=== PATIENT | male | born 1995 | race Caucasian/White ===

== ENCOUNTER 2018-07-05 12:59 | Emergency (ER) | payer SELFPAY ==
[2018-07-05 13:00] VITALS: BP 150/86; PULSE 103; RESP 21; TEMP 36.7; O2SAT 100; BMI 22.8
--- NOTE | 2018-07-05 13:07 | NURSING ---
NO OLD EKGS
--- NOTE | 2018-07-05 13:37 | EKG12_ITS ---
Test Reason : CP SOB Blood Pressure : / mmHG Vent. Rate : 096 BPM Atrial Rate : 096 BPM P-R Int : 124 ms QRS Dur : 092 ms QT Int : 346 ms P-R-T Axes : -82 082 -20 degrees QTc Int : 437 ms Unusual P axis and short [place], probable junctional tachycardia T wave abnormality, consider inferior ischemia Abnormal ECG Confirmed by ORI NIÑO, KWASI ([id number]), web editor EVY DAY ([id number]) on 07/10/2018 11:34:27 AM Referred By: LAURA Confirmed By:KWASI REHMAN MD
--- NOTE | 2018-07-05 13:37 | RAD_ITS ---
STUDY: X-RAY CHEST REASON FOR EXAM: Male, 22 years old. Chest pain TECHNIQUE: Frontal and lateral views of the chest were obtained. COMPARISON: March 03, 2016 FINDINGS: The lungs are adequately aerated. There are no focal airspace opacities. There is no demonstrated pleural abnormality. Incidentally noted is a benign azygos fissure in the right apex. The cardiac silhouette is normal in size. The mediastinum and hilar regions are unremarkable. Normal visualized pulmonary arteries. Normal visualized aortic arch and descending thoracic aorta. The thoracic spine is unremarkable. The visualized ribs, clavicles, and shoulders are unremarkable. There is no demonstrated abnormality of the visualized upper abdomen. RAD/Chest PA and Lateral IMPRESSION: No acute cardiopulmonary abnormalities. Electronically Signed: Lilibeth Shay MD at 14:24 EST Tel Direct: [phone], Service support ,
[2018-07-05 15:00] VITALS: BP 129/72; PULSE 69; RESP 17; O2SAT 97
[2018-07-05 15:09] LABS: Amphetamine Urine VISTA NEGATIVE (<1000 ng/mL); Barbiturate Urine VISTA NEGATIVE (< 200 ng/mL); Benzodiazepine Urine VISTA NEGATIVE (< 200 ng/mL); Cocaine Urine VISTA NEGATIVE (< 300 ng/mL); Ecstacy Urine VISTA NEGATIVE (< 500 ng/mL); Methadone Urine VISTA NEGATIVE (< 300 ng/mL); PCP Urine VISTA NEGATIVE (< 25 ng/mL); THC Urine VISTA POSITIVE (< 50 ng/mL); Vista UDS pH Range 7
--- NOTE | 2018-07-05 15:22 | ED.VISSUMM ---
- ER Visit Summary Date of Service: 07/05/18 Chief Complaint: Shortness of breath History of Present Illness: The patient is a 22 M who states that today at work he began to feel tightness in his chest and then developed tingling in his arms and his face and some shortness of breath. States is happened before but only lasted a couple minutes the same to keep going and was getting worse. Patient states he is never seen a counselor before. He states he is under a great deal of stress in his personal life. Physical Examination: Afebrile vital signs are stable Gen: Well-nourished well-developed Head: Normocephalic atraumatic Eyes: Perrl EOMI ENT: TMs clear no rhinorrhea moist mucous membranes Neck: Supple no lymphadenopathy no JVD nontender CVS: Regular rate rhythm no murmurs normal S1-S2 Respiratory: No distress clear to auscultation bilaterally chest nontender Abdomen: Soft nontender nondistended normal bowel sounds no masses Back: Nontender Extremity: Nontender no edema Skin: Normal color no rash Neuro: alert orientated ?3 CN II-XII intact normal strength sensation reflexes gait cerebellar Psych: Anxious Test Results: EKG sinus rhythm at a rate of 96. Chest x-ray negative. Urine tox is positive for cannabinoids Emergency Department Course and Treatment: When I first walked into the room to meet the patient he was sleeping. Patient's pulse ox was about 76% and he was snoring having periods of apnea. Patient most likely has sleep apnea and I would recommend that he follow-up with primary care to have a sleep study. He also will need to follow-up with counseling center primary care regarding his anxiety. Impression: 1. Panic attack 2. Sleep apnea This note was generated with [employer] dictation software. It may contain incorrect words, spelling, and punctuation that were not noted in review of the chart prior to signing ED Disposition - Plan for ED Patient: Disposition: Home or Assisted Living Chief Complaint: Chest Pain Instructions: ED Panic Attack, What Are Snoring and Sleep Apnea? Referrals: Juan Weber MD [STAFF PHYSICIAN] - As soon as possible Counseling,Center [GROUP OF PHYSICIANS] - As soon as possible
== END 2018-07-05 16:18 | disposition home or self-care (01) ==
PROVIDERS: Emergency Provider Emergency Medicine
DX: G47.30 Sleep apnea, unspecified (principal); F41.0 Panic disorder [episodic paroxysmal anxiety]; Z87.891 Personal history of nicotine dependence
CPT/HCPCS: 71046; 80307; 93005; 99285; A4216

== ENCOUNTER 2018-12-02 18:56 | Emergency (ER) | payer OTHER, SELFPAY ==
[2018-12-02 18:56] VITALS: BP 138/73; PULSE 95; RESP 16; TEMP 36.3; O2SAT 97; BMI 23.0
--- NOTE | 2018-12-02 19:55 | RAD_ITS ---
STUDY: X-RAY - LUMBAR SPINE REASON FOR EXAM: Male, 23 years old. Pain TECHNIQUE: 3 view(s) of the lumbar spine were obtained. COMPARISON: None FINDINGS: There is no evidence of fracture or dislocation in the lumbar spine. The vertebral body heights and disc spaces are well-maintained. There are no significant degenerative changes. RAD/Lumbar Spine 2 or 3 Views IMPRESSION: No fracture or dislocation in the lumbar spine. Electronically Signed: Gianni Marroquin, at 20:12 EDT Tel , Service support ,
[2018-12-02] MEDS: morphine 10 MG/ML Syringe IM (20:07)
[2018-12-02] MEDS: Ondansetron 4 MG/2 ML Vial IM (20:07)
--- NOTE | 2018-12-02 20:09 | ED.VISSUMM ---
- ER Visit Summary Date of Service: 12/02/18 Chief Complaint: Back pain History of Present Illness: The patient is a 23 M presenting with back pain. Patient states he has been having ongoing back pain for the past several months. He states this started when he slipped on ice a few months ago and fell landing on his back. He states since Sunday the pain has been worse. He has tried ibuprofen at home with no relief. He denies bowel or bladder incontinence. Denies numbness or weakness. Denies fever. Denies other complaints. Physical Examination: Vitals are stable. Patient is afebrile. Alert no acute distress. HEENT exam is unremarkable. Neck is supple. Lungs are clear and equal bilaterally. Heart is regular rate and rhythm. Abdomen is soft nontender nondistended. Back: Right paraspinal lumbar muscle tenderness, no midline tenderness. Straight leg raise positive at 30 degrees on the right Extremities are unremarkable. Skin is warm and dry. No focal neurologic deficit. Normal strength and sensation Remainder of exam is unremarkable. Emergency department course and Treatment: Patient was given morphine, Zofran IM. Lumbar spine x-ray shows no acute process. On reevaluation, patient is feeling improved. He is given prescription for Naprosyn and Flexeril. Advised to follow-up with primary care physician. Advised return to ED if worsening complaints. Disposition: Discharge home Impression: Lumbar strain This note was generated with [employer] dictation software. It may contain incorrect words, spelling, and punctuation that were not noted in review of the chart prior to signing ED Disposition - Plan for ED Patient: Instructions: ED Neck Back Pain General Prescriptions: Naproxen [Naprosyn] 500 mg PO BID PRN #20 tablet Cyclobenzaprine [Flexeril] 10 mg PO TID PRN #20 tablet PRN Reason: Muscle Spasm Referrals: Houston Eugene MD [STAFF PHYSICIAN] - Care Physician,No Primary [Primary Care Provider] -
--- NOTE | 2018-12-02 20:45 | ED.DEP ---
ED Disposition - Plan for ED Patient: Instructions: ED Neck Back Pain General Prescriptions: Naproxen [Naprosyn] 500 mg PO BID PRN #20 tablet Cyclobenzaprine [Flexeril] 10 mg PO TID PRN #20 tablet PRN Reason: Muscle Spasm Referrals: Care Physician,No Primary [Primary Care Provider] - Houston Eugene MD [STAFF PHYSICIAN] -
[2018-12-02 21:07] VITALS: RESP 18
== END 2018-12-02 21:25 | disposition home or self-care (01) ==
LOC: ED 19:53
PROVIDERS: Emergency Provider Emergency Medicine
DX: S39.012A Strain of muscle, fascia and tendon of lower back, initial encounter (principal); W00.0XXA Fall on same level due to ice and snow, initial encounter; Y93.89 Activity, other specified; Y92.89 Other specified places as the place of occurrence of the external cause; Y99.8 Other external cause status
CPT/HCPCS: 72100; 96372; 99282; J2405

== ENCOUNTER 2019-06-23 01:31 | Emergency (ER) | payer SELFPAY ==
[2019-06-23 01:32] VITALS: BP 136/113; PULSE 84; RESP 20; TEMP 36.2; O2SAT 98; BMI 24.0
--- NOTE | 2019-06-23 01:43 | ED.DCSUM_ITS ---
- ER Visit Summary Date of Service: 06/23/19 Chief Complaint: Dental pain History of Present Illness: The patient is a 23 M no seen in past medical history. States he had root canals before and is front upper teeth. States he has had pain last several days. Denies any recent trauma. No fever. No troubl e breathing or swallowing. Physical Examination: Young male complaining of pain vital signs are stable afebrile. He is in no acute distress. H EENT exam is unremarkable. Except his right upper tooth is decayed. There is minimal gingival swelling. His left upper front tooth is tender to palpation. There is no obvious abscess. There is no trismus. There is no swelling of his face. Posterior pharynx unremarkable. Neck nontender no lymphadenopathy. Lungs clear to auscultation bilaterally. Heart regular rhythm no murmur. Abdomen is soft and nontender. Patient is moving all 4 extremities. No edema. No track chaudhari. Neurologically is awake alert with no focal motor deficits. Test Results: None Emergency Department Course and Treatment: Patient be treated with Naprosyn for his dental pain. Given a prescription. Treatment Plan: Follow-up with [facility] clinic. Naprosyn for pain. Disposition: Discharge Impression: Dental pain This note was generated with [employer] dictation software. It may contain incorrect words, spelling, and punctuation that were not noted in review of the chart prior to signing ED Disposition - Plan for ED Patient: Referrals: Care Physician,No Primary [Primary Care Provider] -
--- NOTE | 2019-06-23 01:45 | ED.DEP ---
ED Disposition - Plan for ED Patient: Disposition: Home or Assisted Living Instructions: Dental Pain Prescriptions: Naproxen [Naprosyn] 500 mg PO BID PRN PRN #20 tab PRN Reason: pain Prescription Printed Referrals: Margarita Lopez [NON-STAFF] - As soon as possible Additional Instructions: Naprosyn and Tylenol for pain. Call follow-up with the [facility] [place] [facility].
[2019-06-23] MEDS: Naproxen 500 MG Tablet PO (01:49)
== END 2019-06-23 02:00 | disposition home or self-care (01) ==
LOC: ED 01:58
PROVIDERS: Emergency Provider Emergency Medicine
DX: K08.89 Other specified disorders of teeth and supporting structures (principal); Z72.0 Tobacco use
CPT/HCPCS: 99283

== ENCOUNTER 2022-03-23 17:02 | Emergency (ER) | payer SELFPAY ==
[2022-03-23 17:03] VITALS: BP 138/86; PULSE 87; RESP 16; TEMP 36.4; O2SAT 99; BMI 25.1
--- NOTE | 2022-03-23 17:44 | CT_ITS ---
STUDY: CT Abdomen And Pelvis W/ Contrast Injection 03/23/2022 6:34 PM REASON FOR EXAM: Male, 26 years old. Right lower quadrant PAIN abdominal pain TECHNIQUE: Transaxial images were obtained without oral contrast, and with IV 100mL Isovue-300 intravenous contrast. Individualized dose optimization techniques were used for this CT. COMPARISON: 03/03/2016. FINDINGS: The visualized lung bases are unremarkable. The visualized portions of the heart are within normal limits. Stable hypodensity in the left lobe of the liver. Unremarkable gallbladder and extrahepatic biliary system. Unremarkable spleen. Unremarkable pancreas. Unremarkable bilateral adrenal glands. No acute findings of the right kidney. No acute findings of the left kidney. Unremarkable visualized stomach. Unremarkable small intestine. Unremarkable colon. The appendix is visualized and appears unremarkable. There are no acute findings of the abdominal aorta. Unremarkable inferior vena cava. Subcentimeter mesenteric lymph nodes. Unremarkable urinary bladder. There is an umbilical hernia containing fat. Unremarkable osseous structures. CT/Abdomen/Pelvis W IV Cont ONLY IMPRESSION: (NOT LISTED IN ORDER OF SIGNIFICANCE) There are no acute findings. The appendix is visualized and is normal. Other findings as above. Electronically Signed: Tacho Boswell MD at 18:36 EDT ,
[2022-03-23] MEDS: 0.9% Normal Saline 1,000 ML 1000 ML IV (17:51)
--- NOTE | 2022-03-23 17:51 | ED.VIS.GI ---
HPI HPI - GI History of Present Illness Chief Complaint: Abd Pain Informant: patient Narrative Narrative: The 6-year-old male presenting to the emergency room day 3 of abdominal pain. Patient states he has had a constant right-sided abdominal pain that is progressively worsened. He notes constipation and nausea and vomiting. He states that food seems to make it worse. Movement makes it worse as does touch. He denies any fever. Last p.o. was this morning at breakfast. No prior abdominal surgeries. PFSH PFSH Medical History no medical history no medical history Home Medications NK 03/23/22 [History Last Taken Unknown] Allergy/AdvReac Type Severity Reaction Status Date / Time No Known Allergies Allergy Verified 03/23/22 17:02 Family History no significant family his Surgical History no surgical history no surgical history Social History (Updated 03/23/22 @ 17:[address] Norris Salazar, DO) Smoking Status: Never smoker substance use type: does not use ROS ROS ED Constitutional Constitutional ED: Denies chills or weight loss Eyes Eyes: Denies change in vision or diplopia ENT ENT ED: Denies ear pain, rhinorrhea or sore throat Cardiovascular Cardiovascular: Denies chest pain, orthopnea, palpitations or racing heartbeat Respiratory/Chest Respiratory/Chest: Denies cough, dyspnea or orthopnea Gastrointestinal Gastrointestinal: Reports abdominal pain, constipation, nausea and vomiting; Denies diarrhea Genitourinary Genitourinary ED: Denies dysuria, hematuria or urinary frequency Musculoskeletal Musculoskeletal: Denies arthralgias or myalgias Integumentary Denies abscess or rash Neurologic Neurologic: Denies headache(s) or weakness Psychiatric Psychiatric: Denies anxiety, depression, suicidal ideation or suicidal thoughts Endocrine Endocrinology: Denies polydipsia, polyphagia or polyuria Allergic/Immunologic Allergic/Immunologic ED: Denies mouth swelling, tongue swelling or urticaria EXAM Physical Exam Const Vital Signs: 03/23/22 17:03 Temperature 97.6 F L Temperature Source Temporal Pulse Rate 87 Respiratory Rate 16 Blood Pressure 138/86 H Blood Pressure Mean 103 Pulse Ox 99 Oxygen Delivery Method Room Air Positive well nourished and well developed General Appearance ED: well developed HEENT Reports normocephalic, head/scalp atraumatic and moist mucous membranes Eyes PERRL and EOMs intact bilaterally Neck no lymphadenopathy, supple and no JVD Resp normal respiratory effort and clear to auscultation bilaterally Cardio regular rate, regular rhythm and no murmurs GI Auscultation: hypoactive bowel sounds Palpation: soft, guarding RLQ and rebound tenderness present McBurney's point Back/Spine no CVA tenderness and normal ROM Extremity normal to inspection General Extremety ED: Negative for edema General Extremity: Negative for edema Neuro oriented x3 and CN's II-XII intact bilaterally Sensorium / Orientation: alert Motor Exam: strength 5/5 throughout Psych mental status grossly normal Mood & Affect: Negative for depressed or tearful Skin no rashes or lesions noted and no wounds MDM MDM MDM Narrative Medical decision making narrative: ASIC blood work showed a white count of 5.3. CMP and lipase normal. Urinalysis shows no overt infection. CT of the ab pelvis shows a normal appendix. There are few enlarged lymph nodes noted. Patient received morphine and Zofran and his pain is improved. He also received a liter of fluids. At this point I will write for the patient have pain and nausea medicine at home. He is to return if continued symptoms or worsening. Follow-up with primary care Lab Data Attestation: I reviewed the patient's lab results. Labs: Laboratory Results - last 24 hr 03/23/22 03/23/22 03/23/22 17:25 17:25 18:15 WBC 5.3 RBC 4.96 Hgb 15.8 Hct 43.7 MCV 88.1 MCH 31.9 MCHC 36.2 H RDW Std Deviation 37.2 RDW Coeff of Martha 11.6 Plt Count 262 MPV 9.7 Immature Gran % (Auto) 0.200 Neut % (Auto) 52.9 Lymph % (Auto) 31.8 Troup % (Auto) 13.2 H Eos % (Auto) 1.5 Baso % (Auto) 0.4 Absolute Neuts (auto) 2.8 Absolute Lymphs (auto) 1.69 Nucleated RBC % 0 Sodium 139 Potassium 3.6 Chloride 103 Carbon Dioxide 30.0 Anion Gap 6 BUN 12 Creatinine 1.27 Estim Creat Clear Calc 86.60 Est GFR (MDRD) Af Amer 87 Est GFR (MDRD) Non-Af 72 BUN/Creatinine Ratio 9.4 L Glucose 110 H Calcium 9.3 Total Bilirubin 1.00 AST 19 ALT 37 Alkaline Phosphatase 48 Total Protein 7.9 Albumin 3.8 Globulin 4.1 Albumin/Globulin Ratio 0.9 Lipase 61 L Urine Color Yellow Urine Clarity Sl. Cloudy Urine pH 8.0 Ur Specific [place] 1.010 Urine Protein Negative Urine Glucose (UA) Normal Urine Ketones Negative Urine Occult Blood Negative Urine Nitrite Negative Urine Bilirubin Negative Urine Urobilinogen Normal Ur Leukocyte Esterase Negative Urine RBC 0 SEEN Urine WBC 0 SEEN Ur Squamous Epith Cells 0-5 SEEN Amorphous Sediment 1+ PHOS Urine Bacteria 0 SEEN Urine Mucus 0 SEEN Radiography Diagnostic Testing: Clinical Impression(s) from Imaging Studies Abdomen/Pelvis CT 03/23/22 17:44 IMPRESSION: (NOT LISTED IN ORDER OF SIGNIFICANCE) There are no acute findings. The appendix is visualized and is normal. Other findings as above. Electronically Signed: Tacho Boswell MD at 18:36 EDT Reading Location ID and State: [facility] / [place] , Service support , Discharge Plan Triage Chief Complaint: Abd Pain ED Provider: Norris Salazar Dx/Rx/DC Orders Prescriptions: No Action NK Primary Care Provider: Care Physician,No Primary Referrals: Care Physician,No Primary [Primary Care Provider] -
[2022-03-23] MEDS: Ondansetron 4 MG/2 ML Vial IV (17:52)
[2022-03-23] MEDS: Morphine 4 MG/ML Syringe IV (17:52)
[2022-03-23 18:06] LABS: Absolute Lymphocyte Count 1.69 X10^3/uL (0.83-4.51); Absolute Neutrophil Count 2.8 X10^3/uL (2.0-7.7); Basophil# 0.02 X10^3/uL; Basophil% 0.4 % (0-1); Eosinophil# 0.08 X10^3/uL; Eosinophils% 1.5 % (0-5); Hematocrit 43.7 % (40-54); Hemoglobin 15.8 g/dL (13.0-16.5); Lymphocyte # 1.69 X10^3/ul (0.83-4.51); Lymphocyte % 31.8 % (19-41); Mean Corp Hgb Conc 36.2 g/dL (32-36); Mean Corpuscular Hgb 31.9 pg (27.0-32.0); Mean Corpuscular Volume 88.1 fL (80-94); Mean Platelet Vol. 9.7 fl (6.2-12.0); Monocyte% 13.2 % (0-10); NRBC Flagged by Analyzer 0 % (0-5); Neutrophil # 2.82 X10^3/uL (2.7-7.7); Neutrophil % 52.9 % (47-70); Platelet Count 262 K/mm3 (150-450); RBC Distribution Width CV 11.6 % (11.6-14.6); RBC Distribution Width SD 37.2 fl (35.1-43.9); Red Blood Count 4.96 M/mm3 (4.6-6.2); White Blood Count 5.3 K/mm3 (4.4-11.0)
[2022-03-23 18:27] LABS: ALB/GLOB Ratio 0.9 RATIO (0.9-2.4); AST(SGOT) 19 U/L (15-37); Alanine Aminotransfer ALT/SGPT 37 U/L (16-61); Albumin, Serum 3.8 g/dL (3.2-5.0); Alkaline Phosphatase 48 U/L (45-117); Anion Gap 6 (5-15); BUN 12 mg/dL (7-18); BUN/Creat Ratio 9.4 RATIO (10-20); Calcium,Total 9.3 mg/dL (8.5-10.1); Chloride 103 mmol/L (98-107); Creatinine, Serum 1.27 mg/dL (0.70-1.30); EST Glomerular Filtration Rate 72 mL/min (>60); Est Glom Filt Rate - Afr Amer 87 mL/min (>60); Globulin 4.1 g/dL (2.2-4.2); Glucose 110 mg/dL (74-106); Lipase 61 U/L (73-393); Potassium 3.6 mmol/L (3.5-5.1); Protein, Total 7.9 g/dL (6.4-8.2); Sodium Level 139 mmol/L (136-145)
[2022-03-23 18:33] LABS: Bacteria 0 SEEN /hpf (None Seen); Mucous, Urine 0 SEEN /hpf (<or=2+); Red Blood Cells-Urine 0 SEEN /hpf (0-5); White Blood Cells 0 SEEN /hpf (0-5)
[2022-03-23 18:41] LABS: Color, Urine Yellow (Yellow); Glucose, Dipstick Normal (Normal); Ketone-Dipstick Negative (Negative); Leukocyte Esterase-Dipstick Negative /ul (Negative); Nitrite-Dipstick Negative (Negative); Occult Blood-Urine Negative /ul (Negative); Protein-Dipstick Negative (Negative); Urine Bilirubin Dipstick Negative (Negative); Urine Clarity Sl. Cloudy (Clear); Urine Urobilinogen Normal (Normal)
[2022-03-23 18:47] LABS: Amorphous Sediment 1+ PHOS; Squamous Epithelial Cells - UA 0-5 SEEN /hpf (0-5)
[2022-03-23 19:13] VITALS: BP 132/81; PULSE 86; RESP 16; O2SAT 99
== END 2022-03-23 19:24 | disposition home or self-care (01) ==
PROVIDERS: Emergency Provider Emergency Medicine; Visit Provider Emergency Medicine
DX: R10.9 Unspecified abdominal pain (principal); R11.2 Nausea with vomiting, unspecified; K59.00 Constipation, unspecified
CPT/HCPCS: 74177; 80053; 81001; 83690; 85025; 96361; 96374; 96375; 99283; J7030; Q9967; A4216; J2405

== ENCOUNTER 2023-09-08 03:05 | Emergency (ER) | payer SELFPAY ==
[2023-09-08 03:07] VITALS: BP 139/98; PULSE 94; RESP 18; TEMP 36.2; O2SAT 100; BMI 27.9
[2023-09-08 03:09] VITALS: BP 139/98; PULSE 94; RESP 18; TEMP 36.2; O2SAT 100
--- NOTE | 2023-09-08 03:10 | EDS_ITS ---
HPI HPI - URI History of Present Illness Chief Complaint: Sore Throat Detail of Chief Complaint: Mild sore throat with mild trouble swallowing. Informant: patient Onset/Context/Timing Onset: Today and Hours Context: Gradual Onset Timing: Continuous Current Severity: Mild Maximum Severity: Mild Associated Symptoms Associated Symptoms: Negative for Shortness of Breath, Chest Pain, Nonproductive cough, Hemoptysis or Productive Cough Narrative Narrative: 28-year-old male no seen past medical or surgical history. No prior throat surgery. Currently on no medications. Said he felt fine last night when he went to bed when he woke up this morning 1 to 2 hours ago he noticed a sore throat and painful swallowing. No trouble breathing. He denies any recent choking or aspiration. He is able to swallow. No prior history. Prior similar symptoms: No Recent Illness/Hospitalization: No ROS ROS ED ROS Narrative sore throat Review of Systems ROS Unobtainable: Denies due to encephalopathy Constitutional Constitutional ED: Denies chills or fever(s) Eyes Eyes: Denies blurry vision or change in vision ENT ENT ED: Reports sore throat; Denies ear pain or rhinorrhea Cardiovascular Cardiovascular: Denies chest pain or palpitations Respiratory/Chest Respiratory/Chest: Denies cough or dyspnea Gastrointestinal Gastrointestinal: Denies abdominal pain, constipation, diarrhea, melena, nausea or vomiting Genitourinary Genitourinary ED: Denies dysuria or hematuria Musculoskeletal Musculoskeletal: Denies arthralgias Integumentary Denies abscess Neurologic Neurologic: Denies headache(s) Psychiatric Psychiatric: Denies anxiety Endocrine Endocrinology: Denies cold intolerance Hematologic/Lymphatic Hematologic/Lymphatic: Denies easy bleeding, easy bruising or lymphadenopathy Allergic/Immunologic Allergic/Immunologic ED: Denies mouth swelling, tongue swelling or urticaria PFSH PFSH Medical History no medical history no medical history Home Medications NK 09/08/23 [History Last Taken Unknown] Allergy/AdvReac Type Severity Reaction Status Date / Time No Known Allergies Allergy Verified 09/08/23 03:06 Surgical History no surgical history no surgical history Social History Smoking Status: Never smoker substance use type: does not use EXAM Physical Exam Narrative Exam Narrative: Well-appearing 28-year-old male. Vital signs stable afebrile. Pulse ox 100% room air no signs hypoxia. No stridor or drooling. Again when asked where he can drink it without any difficulty. H EENT exam moist mucous membranes. Dentition intact and unremarkable. Mildly enlarged uvula. Mildly red. No exudate. Tonsils not enlarged. Neck nontender no lymphadenopathy. Trachea midline. Lungs clear to auscultation bilaterally. Heart regular rhythm no murmur. Rate about 90. Chest wall and ribs nontender. Abdomen soft nontender. Moving all 4 extremities. Normal strength. Neurologically is awake alert no focal motor deficits. Const Vital Signs: 09/08/23 03:07 09/08/23 03:09 Temperature 97.1 F L 97.1 F L Temperature Source Temporal Temporal Pulse Rate 94 94 Respiratory Rate 18 18 Blood Pressure 139/98 H 139/98 H Blood Pressure Mean 111 111 Pulse Ox 100 100 Oxygen Delivery Method Room Air Room Air Positive well nourished and well developed; Negative for obese, cachectic or contractures General Appearance ED: well developed and NAD; Negative for cachectic, contractures, cyanotic, diaphoretic or pallor Nutritional Appearance: Negative for cachectic or obese HEENT Reports moist mucous membranes; Denies dry mucous membranes HEENT Narrative: Mild posterior uvula redness and minimal swelling. No exudate. No stridor. normocephalic and atraumatic; Negative for scalp tenderness Face and Sinus: Negative for sinus tenderness Mouth ED: No dry mucous membranes Mouth: No dry mucous membranes Teeth and Gingiva: Negative for caries Throat: posterior oropharynx normal; Negative for tonsils abnormal or posterior oropharynx abnormal Eyes PERRL and EOMs intact bilaterally General Eye ED: Negative for pale conjunctiva, scleral icterus or other Neck no lymphadenopathy, supple, no meningeal signs and no JVD General: Negative for anterior neck swelling or lymphadenopathy Resp normal respiratory effort and clear to auscultation bilaterally Effort and Inspection: Negative for retractions Auscultation: Negative for rales, rhonchi, wheezes or diminished lung sounds Cardio S1 normal heart sound, S2 normal heart sound and no murmurs Rate: regular rate Rhythm: regular rhythm GI non-tender, non-distended and no masses Inspection: Negative for abdominal distention Auscultation: normoactive bowel sounds Palpation: soft; Negative for tender or guarding Back/Spine no CVA tenderness and normal ROM General Back: Negative for CVA tenderness Cervical Spine: Negative for cervical spine tenderness Thoracic Spine / Upper Back: Negative for thoracic spinal tenderness Lumbar Spine / Lower Back: Negative for lumbar spinal tenderness Sacrum: Negative for tenderness Extremity normal to inspection and full ROM General Extremety ED: Negative for tenderness Neuro oriented x3 and CN's II-XII intact bilaterally Sensorium / Orientation: alert, oriented to person, oriented to place and oriented to time; Negative for orientation impaired, lethargic or stuporous Motor Exam: strength 5/5 throughout Psych mental status grossly normal Appearance: Negative for other Attitude: No agitated Mood & Affect: Negative for depressed, anxious or tearful Skin General Skin Exam: Negative for jaundice or pallor Lesions: no lesions Rashes: no rashes Trauma: Negative for abrasion or laceration MDM MDM MDM Narrative Medical decision making narrative: 28-year-old male with sore throat and mild trouble swallowing. Even though he is able to swallow water. CT soft tissue neck and rapid strep. Exam is benign. Repeat exam patient doing well at 3:50 AM. We went over his CAT scan a rapid strep test. I think this is a viral pharyngitis with mild enlargement of his uvula. He does not need to be on antibiotics. Follow-up as needed. Warm salt water gargling. Motrin and Tylenol. History & Record Review Discussion w/independent historian: Patient Lab Data Attestation: I reviewed the patient's lab results. Lab results narrative: Rapid strep negative. CT soft tissue neck normal. Per the radiologist reviewed by me. Radiography Diagnostic Testing: Clinical Impression(s) from Imaging Studies Soft Tissue Neck CT 09/08/23 03:18 IMPRESSION: Normal neck CT. Electronically Signed: Ricardo Youssef MD at 3:42 EST , Discharge Plan Triage Chief Complaint: Sore Throat ED Provider: Isaias Medina Dx/Rx/DC Orders Clinical Impression: Acute viral pharyngitis Instructions: ED Pharyngitis, Viral Prescriptions: No Action NK Primary Care Provider: Care Physician,No Primary Referrals: Travis Olivera MD [Med Staff - Vascular Physician] - 1 Week if not improving Care Physician,No Primary [Primary Care Provider] - Activity Restrictions/Additional Instructions: Warm salt water gargling. Motrin and Tylenol for pain. Follow-up if not improving. Your CAT scan looks good. Your rapid strep is negative. Disposition Disposition: Home, Self Care
--- NOTE | 2023-09-08 03:18 | CT_ITS ---
EXAM: CT NECK WITH INTRAVENOUS CONTRAST CLINICAL INDICATION: painful swallowing TECHNIQUE: Helically acquired images were obtained of the neck with intravenous contrast. This CT exam was performed using one or more of the following dose reduction techniques: automated exposure control, adjustment of the mA and/or kV according to patient size, and/or use of iterative reconstruction technique. CONTRAST: 75 cc of Isovue-370 IV. RADIATION DOSE: CTDIvol = 14.53 mGy, DLP = 439.29 mGy-cm COMPARISON: No relevant prior studies available. FINDINGS: NASOPHARYNX: Unremarkable. SUPRAHYOID NECK: Unremarkable. Oropharynx, oral cavity, parapharyngeal space and retropharyngeal space are unremarkable. INFRAHYOID NECK: Unremarkable. The larynx, hypopharynx and supraglottis are unremarkable. SUBMANDIBULAR/PAROTID GLANDS: Unremarkable. Glands are normal in size. THYROID: Unremarkable. No enlarged or calcified nodules. BONES/JOINTS: No acute fracture. SOFT TISSUES: Unremarkable. VASCULATURE: No acute findings. LYMPH NODES: Unremarkable. No lymphadenopathy. LUNG APICES: Unremarkable as visualized. CT/Soft Tissue Neck WITH Contrast IMPRESSION: Normal neck CT. Electronically Signed: Ricardo Youssef MD at 3:42 EST ,
--- OUTSIDE RECORDS SUMMARY | 2023-09-08 03:30 | XMS RPT_ITS | CCD ---
Author Name Unknown Address [address] [place] [address] Organization [facility] Results Test Name Value Interpretation Reference Range Facil ity Summary Purpose Family History No Family History Records Found Advance Directives No Advanced Directives Records Found Additional Source Comments (unrecognized sect ion and content) No Status Records Found INFORMATION SOURCE (unrecogn ized section and content) FOR RECORDS PERTAINING TO PATIENTS WHO ARE OR HAVE BEEN ENROLLED IN A CHEMICAL DEPENDENCY/SUBSTANCEABUSE PROGRAM, SOME INFORMATION MAY BE OMITTED. This clinical summary was aggregated from multiple sources. Caution should be exercised in using it in the provision of clinical care. This summary normalizes information from multiple sources, and as a consequence, information in this document may materially change the coding, format and clinical context of patient data. In addition, data may be omitted in some cases. CLINICAL DECISIONS SHOULD BE BASED ON THE PRIMARY CLINICAL RECORDS. [employer] provides no warranty or guarantee of the accuracy or completeness of information in this document.
[2023-09-08 04:04] VITALS: BP 121/78; PULSE 77; RESP 18; TEMP 36.7; O2SAT 99
== END 2023-09-08 04:05 | disposition home or self-care (01) ==
PROVIDERS: Emergency Provider Emergency Medicine; Visit Provider Emergency Medicine
DX: J02.8 Acute pharyngitis due to other specified organisms (principal); B97.89 Other viral agents as the cause of diseases classified elsewhere
CPT/HCPCS: 70491; 87651; 99283; Q9967

== ENCOUNTER 2023-10-01 19:11 | Emergency (ER) | payer SELFPAY ==
[2023-10-01 19:11] VITALS: BP 139/98; PULSE 100; RESP 20; TEMP 36.6; O2SAT 98; BMI 26.4
--- NOTE | 2023-10-01 19:38 | EDS_ITS ---
HPI <TJ Lockwood - Last Filed: 10/01/23 21:37> HPI - GI History of Present Illness Chief Complaint: Abd Pain Narrative Narrative: Patient presenting today due to right upper quadrant abdominal pain that he has had intermittently over the past 3 days. He reports that his pain is worse after he eats. He reports that he had similar pain a few years ago and was told that he had enlarged lymph nodes on his CT scan of his abdomen at that time. He has had a few episodes of nausea and vomiting. He has never had any abdominal surgeries. He reports that over the past 3 days he has had a few episodes of coughing up blood. He reports that this is only happened a few times and it is usually just small streaks of blood. He reports that he does use a vape daily. He denies any history of blood clots, recent surgery/procedu res/travel/immobilization. He denies any fever, chills, chest pain, shortness of breath. [facility] <TJ Lockwood - Last Filed: 10/01/23 21:37> [facility] Medical History Heart murmur Home Medications dicyclomine 10 mg capsule 10 mg PO BID #14 caps 10/01/23 [Rx Last Taken Unknown] ondansetron 4 mg disintegrating tablet 4 mg PO Q8H PRN PRN Nausea #10 tabs 10/01/23 [Rx Last Taken Unknown] Allergy/AdvReac Type Severity Reaction Status Date / Time No Known Allergies Allergy Verified 09/08/23 03:06 Social History Smoking Status: Current every day smoker tobacco type: e-cigarettes substance use type: does not use ROS <JT Lockwood - Last Filed: 10/01/23 21:37> ROS ED Constitutional Constitutional ED: Denies chills or fever(s) Cardiovascular Cardiovascular: Denies chest pain or palpitations Respiratory/Chest Respiratory/Chest: Reports cough and hemoptysis; Denies dyspnea Gastrointestinal Gastrointestinal: Reports abdominal pain, nausea and vomiting Genitourinary Genitourinary ED: Denies dysuria, hematuria or urinary urgency Musculoskeletal Musculoskeletal: Denies arthralgias or myalgias Integumentary Denies rash Neurologic Neurologic: Denies weakness EXAM <TJ Lockwood - Last Filed: 10/01/23 21:37> Physical Exam Const Vital Signs: 10/01/23 19:11 Temperature 97.9 F Temperature Source Temporal Pulse Rate 100 Respiratory Rate 20 H Blood Pressure 139/98 H Blood Pressure Mean 111 Pulse Ox 98 Oxygen Delivery Method Room Air Positive well nourished, well developed and no apparent distress General Appearance ED: well developed HEENT Reports normocephalic and head/scalp atraumatic Mouth ED: Yes moist mucous membranes normal Eyes PERRL and EOMs intact bilaterally Neck full ROM and supple Chest Wall inspection of chest normal Resp normal respiratory effort and clear to auscultation bilaterally Cardio regular rate and regular rhythm GI soft to palpation, non-distended and no masses GI Narrative: Minimal tenderness to the right upper quadrant without any rigidity, guarding, or peritoneal signs. Negative McBurney's point tenderness, negative Pisano sign. Back/Spine normal ROM and normal to inspection Extremity normal to inspection and full ROM Neuro oriented x3, CN's II-XII intact bilaterally, moves all extremities, no focal motor deficits and no sensory deficits noted Sensorium / Orientation: awake and alert Psych mental status grossly normal and thought process normal Skin no rashes or lesions noted and no wounds <Dr. Allen Pizarro MD - Last Filed: 10/01/23 21:40> Physical Exam Const Vital Signs: 10/01/23 19:11 Temperature 97.9 F Temperature Source Temporal Pulse Rate 100 Respiratory Rate 20 H Blood Pressure 139/98 H Blood Pressure Mean 111 Pulse Ox 98 Oxygen Delivery Method Room Air MDM <TJ Lockwood - Last Filed: 10/01/23 21:37> [facility] Narrative Medical decision making narrative: Patient presenting today with right upper quadrant abdominal pain, nausea, and vomiting that he has had intermittently over the past 3 days. He is also had a few episodes of hemoptysis. Given his hemoptysis, D-dimer will be obtained to rule out PE, this is negative. He is well-appearing and in no acute distress. Very minimal tenderness to his right upper quadrant without any rigidity or guarding. Labs obtained to rule out leukocytosis, anemia, electrolyte abnormality, hepatobiliary etiology, and ADOLPH. Given the his labs are unremarkable,I do not feel that any imaging is indicated at this time. He was given Zofran and Toradol and reports improvement of his symptoms on reexamination. I will give him a referral for [facility] so that he has a PCP to follow-up with and will give him a prescription for Zofran and Bentyl. He has been given return instructions and will be discharged home in stable condition. He is comfortable with plan. Lab Data Attestation: I reviewed the patient's lab results. Labs: Laboratory Results - last 24 hr 10/01/23 19:28 WBC 6.7 RBC 4.98 Hgb 15.1 Hct 43.6 MCV 87.6 MCH 30.3 MCHC 34.6 RDW Std Deviation 37.6 RDW Coeff of Martha 11.9 Plt Count 245 MPV 10.0 Immature Gran % (Auto) 0.300 Neut % (Auto) 64.0 Lymph % (Auto) 24.1 Po[place]ett % (Auto) 9.7 Eos % (Auto) 1.6 Baso % (Auto) 0.3 Absolute Neuts (auto) 4.3 Absolute Lymphs (auto) 1.61 Nucleated RBC % 0 D-Dimer Quant (PE/DVT) < 0.27 L Sodium 140 Potassium 3.4 L Chloride 107 Carbon Dioxide 26.0 Anion Gap 7 BUN 10 Creatinine 0.86 Estim Creat Clear Calc 125.60 Est GFR (MDRD) Af Amer 134 Est GFR (MDRD) Non-Af 111 BUN/Creatinine Ratio 11.6 Glucose 105 Calcium 9.0 Total Bilirubin 0.50 AST 16 ALT 33 Alkaline Phosphatase 55 Total Protein 7.7 Albumin 3.8 Globulin 3.9 Albumin/Globulin Ratio 1.0 Lipase 22 Radiography X-Ray: Read by ED Physician Diagnostic Testing: Clinical Impression(s) from Imaging Studies Chest X-Ray 10/01/23 19:45 IMPRESSION: Normal x-ray examination of the chest. Electronically Signed: Ida Bond MD at 19:59 EST , <Dr. Allen Pizarro MD - Last Filed: 10/01/23 21:40> [facility] Lab Data Labs: Laboratory Results - last 24 hr 10/01/23 19:28 WBC 6.7 RBC 4.98 Hgb 15.1 Hct 43.6 MCV 87.6 MCH 30.3 MCHC 34.6 RDW Std Deviation 37.6 RDW Coeff of Martha 11.9 Plt Count 245 MPV 10.0 Immature Gran % (Auto) 0.300 Neut % (Auto) 64.0 Lymph % (Auto) 24.1 Poinsett % (Auto) 9.7 Eos % (Auto) 1.6 Baso % (Auto) 0.3 Absolute Neuts (auto) 4.3 Absolute Lymphs (auto) 1.61 Nucleated RBC % 0 D-Dimer Quant (PE/DVT) < 0.27 L Sodium 140 Potassium 3.4 L Chloride 107 Carbon Dioxide 26.0 Anion Gap 7 BUN 10 Creatinine 0.86 Estim Creat Clear Calc 125.60 Est GFR (MDRD) Af Amer 134 Est GFR (MDRD) Non-Af 111 BUN/Creatinine Ratio 11.6 Glucose 105 Calcium 9.0 Total Bilirubin 0.50 AST 16 ALT 33 Alkaline Phosphatase 55 Total Protein 7.7 Albumin 3.8 Globulin 3.9 Albumin/Globulin Ratio 1.0 Lipase 22 Radiography Diagnostic Testing: Clinical Impression(s) from Imaging Studies Chest X-Ray 10/01/23 19:45 IMPRESSION: Normal x-ray examination of the chest. Electronically Signed: Ida Bond MD at 19:59 EST , Treatment and Re-Evaluation :: I have personally performed a face to face assessment of the patient and have reviewed the CORNELIO Note. I performed a substantive portion of the visit including all aspects of the following. My leiva findings include: History: Patient states he has had 3 days where he has fullness in his right upper quadrant. He has some pain. He is able to eat and drink. He is not vomiting. He also states he is coughed up blood a couple times. But he also has a sore throat. But he is not short of breath. No fevers or chills. Exam: Patient awake alert no acute distress. Looks nontoxic. Carries on normal voice. Breathing is easy unlabored and his lungs are clear. Saturations are normal on room air. Even with a deep breath he does not have a cough here. Oropharynx is normal including no inflammatory changes or exudate. No sinus tenderness. No sign of nasal bleeding. Abdomen is soft. He has minimal if any right upper quadrant tenderness but no rebound or guarding. Overall very benign exam. Medical Decision Making: Because the patient's heart rate is 100, we cannot rule him out with PERC criteria. We did do a D-dimer is negative. Will do further blood work. Plan will be to get him home. Discharge Plan Triage Chief Complaint: Abd Pain ED Midlevel Provider: Yandy Donato ED Provider: Allen Pizarro Dx/Rx/DC Orders Clinical Impression: Abdominal pain Instructions: Abdominal Pain Prescriptions: New dicyclomine 10 mg capsule 10 mg PO BID Qty: 14 0RF ondansetron 4 mg tablet,disintegrating 4 mg PO Q8H PRN PRN (Reason: Nausea) Qty: 10 0RF Primary Care Provider: Care Physician,No Primary Referrals: Care Physician,No Primary [Primary Care Provider] - Activity Restrictions/Additional Instructions: Follow-up with PCP and return for any worsening of your symptoms. Disposition Disposition: Home, Self Care Discharge Date/Time: 10/01/23 21:02
[2023-10-01] MEDS: Ondansetron 4 MG/2 ML Vial IV (19:42)
[2023-10-01] MEDS: Ketorolac 15 MG/ML Vial IV (19:43)
--- NOTE | 2023-10-01 19:45 | RAD_ITS ---
STUDY: X-RAY CHEST REASON FOR EXAM: Male, 28 years old. hemoptysis TECHNIQUE: PA and lateral views of the chest. COMPARISON: 07/05/2018. FINDINGS: The lungs are clear and expanded. There is no demonstrated pleural abnormality. Normal size heart. Normal mediastinum and rajani. Normal visualized pulmonary arteries. Normal visualized aortic arch and descending thoracic aorta. Normal visualized thoracic spine. Normal visualized ribs, clavicles, and shoulders. There is no demonstrated abnormality of the visualized soft tissue structures of the upper abdomen. RAD/Chest PA and Lateral IMPRESSION: Normal x-ray examination of the chest. Electronically Signed: Ida Bond MD at 19:59 EST ,
[2023-10-01 19:58] LABS: Absolute Lymphocyte Count 1.61 X10^3/uL (0.83-4.51); Absolute Neutrophil Count 4.3 X10^3/uL (2.0-7.7); Basophil# 0.02 X10^3/uL; Basophil% 0.3 % (0-1); Eosinophil# 0.11 X10^3/uL; Eosinophils% 1.6 % (0-5); Hematocrit 43.6 % (40-54); Hemoglobin 15.1 g/dL (13.0-16.5); Lymphocyte # 1.61 X10^3/ul (0.83-4.51); Lymphocyte % 24.1 % (19-41); Mean Corp Hgb Conc 34.6 g/dL (32-36); Mean Corpuscular Hgb 30.3 pg (27.0-32.0); Mean Corpuscular Volume 87.6 fL (80-94); Monocyte# 0.65 X10^3/uL; Monocyte% 9.7 % (0-10); NRBC Flagged by Analyzer 0 % (0-5); Neutrophil # 4.28 X10^3/uL (2.7-7.7); Platelet Count 245 K/mm3 (150-450); RBC Distribution Width CV 11.9 % (11.6-14.6); RBC Distribution Width SD 37.6 fl (35.1-43.9); Red Blood Count 4.98 M/mm3 (4.6-6.2); White Blood Count 6.7 K/mm3 (4.4-11.0)
[2023-10-01 20:14] LABS: D-Dimer Quantitative (DVT/PE) < 0.27 FEU/ug/m (0.27-0.49)
[2023-10-01 20:18] LABS: AST(SGOT) 16 U/L (15-37); Alanine Aminotransfer ALT/SGPT 33 U/L (16-61); Albumin, Serum 3.8 g/dL (3.2-5.0); Alkaline Phosphatase 55 U/L (45-117); Anion Gap 7 (5-15); BUN 10 mg/dL (7-18); BUN/Creat Ratio 11.6 RATIO (10-20); Chloride 107 mmol/L (98-107); Creatinine, Serum 0.86 mg/dL (0.70-1.30); EST Glomerular Filtration Rate 111 mL/min (>60); Est Glom Filt Rate - Afr Amer 134 mL/min (>60); Globulin 3.9 g/dL (2.2-4.2); Glucose 105 mg/dL (74-106); Lipase 22 U/L (13-75); Potassium 3.4 mmol/L (3.5-5.1); Protein, Total 7.7 g/dL (6.4-8.2); Sodium Level 140 mmol/L (136-145)
== END 2023-10-01 21:02 | disposition home or self-care (01) ==
PROVIDERS: Physician Assistant; Emergency Provider Emergency Medicine; Visit Provider Emergency Medicine
DX: R10.11 Right upper quadrant pain (principal); F17.290 Nicotine dependence, other tobacco product, uncomplicated
CPT/HCPCS: 71046; 80053; 83690; 85025; 85379; 96374; 96375; 99282; A4216; J2405

== ENCOUNTER 2024-06-27 15:30 | Emergency (ER) | payer SELFPAY ==
[2024-06-27 15:34] VITALS: BP 129/95; PULSE 88; RESP 16; TEMP 36.9; O2SAT 97; BMI 28.0
[2024-06-27] MEDS: Ondansetron 4 MG/2 ML Vial IV (16:00)
[2024-06-27] MEDS: Morphine 4 MG/ML Syringe IV (16:00)
[2024-06-27 16:08] LABS: Absolute Lymphocyte Count 1.59 X10^3/uL (0.83-4.51); Absolute Neutrophil Count 7.3 X10^3/uL (2.0-7.7); Basophil# 0.03 X10^3/uL; Basophil% 0.3 % (0-1); Eosinophil# 0.07 X10^3/uL; Eosinophils% 0.7 % (0-5); Hematocrit 42.5 % (40-54); Hemoglobin 15.1 g/dL (13.0-16.5); Lymphocyte # 1.59 X10^3/ul (0.83-4.51); Mean Corp Hgb Conc 35.5 g/dL (32-36); Mean Corpuscular Hgb 29.9 pg (27.0-32.0); Mean Corpuscular Volume 84.2 fL (80-94); Mean Platelet Vol. 9.6 fl (6.2-12.0); Monocyte# 0.95 X10^3/uL; Monocyte% 9.5 % (0-10); NRBC Flagged by Analyzer 0 % (0-5); Neutrophil # 7.27 X10^3/uL (2.7-7.7); Platelet Count 259 K/mm3 (150-450); RBC Distribution Width CV 12.7 % (11.6-14.6); Red Blood Count 5.05 M/mm3 (4.6-6.2)
[2024-06-27 16:22] LABS: AST(SGOT) 21 U/L (15-37); Alanine Aminotransfer ALT/SGPT 41 U/L (16-61); Albumin, Serum 3.9 g/dL (3.2-5.0); Alkaline Phosphatase 56 U/L (45-117); Anion Gap 7 (5-15); BUN 12 mg/dL (7-18); BUN/Creat Ratio 13.5 RATIO (10-20); Bilirubin, Direct 0.18 mg/dL (0.00-0.30); Chloride 106 mmol/L (98-107); Creatinine, Serum 0.89 mg/dL (0.70-1.30); EST Glomerular Filtration Rate 107 mL/min (>60); Est Glom Filt Rate - Afr Amer 129 mL/min (>60); Estimated Creatinine Clearance 127.92 ml/min; Globulin 3.9 g/dL (2.2-4.2); Glucose 144 mg/dL (74-106); Potassium 3.5 mmol/L (3.5-5.1); Protein, Total 7.8 g/dL (6.4-8.2); Sodium Level 137 mmol/L (136-145)
[2024-06-27 17:30] VITALS: BP 125/78; PULSE 81; RESP 16; TEMP 36.6; O2SAT 100
== END 2024-06-27 17:40 | disposition home or self-care (01) ==
PROVIDERS: Emergency Provider Emergency Medicine; Visit Provider Emergency Medicine
DX: S22.089A Unspecified fracture of T11-T12 vertebra, initial encounter for closed fracture (principal); R51.9 Headache, unspecified; R11.2 Nausea with vomiting, unspecified; R10.9 Unspecified abdominal pain; R07.9 Chest pain, unspecified; M25.512 Pain in left shoulder; R06.02 Shortness of breath; V89.2XXA Person injured in unspecified motor-vehicle accident, traffic, initial encounter; M50.322 Other cervical disc degeneration at C5-C6 level; F41.0 Panic disorder [episodic paroxysmal anxiety]; F17.210 Nicotine dependence, cigarettes, uncomplicated; F17.290 Nicotine dependence, other tobacco product, uncomplicated
CPT/HCPCS: 70450; 71260; 72125; 73030; 74177; 80048; 80076; 85025; 93005; 96374; 96375; 99285; Q9967; J2405

== ENCOUNTER 2025-03-02 15:27 | Emergency (ER) | payer SELFPAY ==
[2025-03-02 15:27] VITALS: BP 130/91; PULSE 109; RESP 18; TEMP 36.8; O2SAT 100; BMI 26.8
--- NOTE | 2025-03-02 16:26 | EKG12_ITS ---
Test Reason : MENTAL HEALTH Blood Pressure : */* mmHG Vent. Rate : 88 BPM Atrial Rate : 88 BPM P-R Int : 134 ms QRS Dur : 90 ms QT Int : 350 ms P-R-T Axes : 36 71 25 degrees QTcB Int : 423 ms Normal sinus rhythm Normal ECG Confirmed by Ricardo Sears ([id number]), editorial specialist AFTAB FARMER ([id number]) on 03/04/2025 11:20:43 AM Referred By: Confirmed By: Ricardo Sears
[2025-03-02 16:27] VITALS: BP 132/88; PULSE 94; RESP 18; O2SAT 99
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
[2025-03-02 16:42] LABS: Hematocrit 46.6 % (40-54); Hemoglobin 16.4 g/dL (13.0-16.5); Immature Granulocytes Count 0.050 X10^3/uL (0.0-0.0); Mean Corp Hgb Conc 35.2 g/dL (32-36); Mean Corpuscular Volume 86.1 fL (80-94); Mean Platelet Vol. 10.1 fl (6.2-12.0); NRBC Flagged by Analyzer 0 % (0-5); Platelet Count 274 K/mm3 (150-450); RBC Distribution Width CV 11.9 % (11.6-14.6); RBC Distribution Width SD 37.2 fl (35.1-43.9); Red Blood Count 5.41 M/mm3 (4.6-6.2); White Blood Count 11.2 K/mm3 (4.4-11.0)
--- NOTE | 2025-03-02 17:14 | CM.ED ---
Social Work SW contacted Vlad at Crisis due to patient not having insurance. Hand off completed and face sheet faxed. ARMANDO VangW
[2025-03-02 17:21] LABS: Alcohol, Blood (Medical)-Serum 61.0 mg/dL (<=10.0)
[2025-03-02 17:32] LABS: AST(SGOT) 24 U/L (<=37); Alanine Aminotransfer ALT/SGPT 34 U/L (<=46); Albumin, Serum 4.6 g/dL (3.5-5.0); Alkaline Phosphatase 58 U/L (40-129); Anion Gap 16 (5-15); BUN 11 mg/dL (4-19); BUN/Creat Ratio 12.1 RATIO (10-20); Calcium,Total 9.8 mg/dL (7.6-11.0); Carbon Dioxide 20.7 mmol/L (21.0-32.0); Chloride 102 mmol/L (98-108); Estimated Creatinine Clearance 119.02 ml/min (50-250); Globulin 3.8 g/dL (2.2-4.2); Glucose 83 mg/dL (70-99); Potassium 3.9 mmol/L (3.3-5.1)
--- NOTE | 2025-03-02 17:40 | PCA ---
PT HAS BEEN REFEREED TO [facility]. PT ALSO MAY HAVE THE CRISIS FUNDING FOR PLACEMENT, [facility] SAID THEY WOULD REEFER TO [facility]. THEN [facility]ST[facility]. MOIRA DID SAY THAT IF PT IS ACCEPTED AT [facility] THEN THE WAIT TIME FOR A BED WOULD BE LONGER BECAUSE OF THE CHANGE IN THE WAY THE CRISIS FUNDING IS.
[2025-03-02 17:52] LABS: Barbiturate Urine NEGATIVE (< 200 ng/mL); Benzodiazepine Urine NEGATIVE (< 200 ng/mL); PCP Urine NEGATIVE (< 25 ng/mL); THC Urine PRESUMPTIVE POSITIVE (< 50 ng/mL)
--- NOTE | 2025-03-02 20:05 | PCA ---
jamie arcos called at [facility] to inquire about pt's insurance & behavior as referral was sent to them by crisis.
[2025-03-03 01:07] VITALS: BP 126/91; PULSE 74; RESP 16; O2SAT 99
[2025-03-03 03:16] VITALS: BP 126/91; PULSE 74; RESP 16; TEMP 36.8; O2SAT 99
[2025-03-03 09:00] VITALS: BP 131/95; PULSE 58; RESP 14; TEMP 36.8; O2SAT 99
== END 2025-03-03 12:01 ==
PROVIDERS: Emergency Provider Emergency Medicine; Visit Provider Emergency Medicine
DX: R45.851 Suicidal ideations (principal); F32.9 Major depressive disorder, single episode, unspecified; F10.10 Alcohol abuse, uncomplicated; F17.210 Nicotine dependence, cigarettes, uncomplicated; F17.290 Nicotine dependence, other tobacco product, uncomplicated
CPT/HCPCS: 80053; 80307; 82077; 84443; 85025; 93005; 99285

== ENCOUNTER 2025-05-18 09:00 | Emergency (ER) | payer SELFPAY ==
--- OUTSIDE RECORDS SUMMARY | 2025-01-10 18:22 | XMS RPT_ITS ---
Author Name Auto Generated Organization [facility] Care Team Providers Care [employer] Name Role Phone PHYSICIAN, NONE Primary Care Unavailable ABRAM ELENA DO Attending Unavailable PROBLEMS DATE TYPE CONDITION / CODE ATTENDING STATUS RASHI RCE 01/10/2025 Unknown Other chest pain / R07.89(ICD-10) ABRAM ELENA DO Active [facility] PROCEDURES No Procedure Records Found RESULTS XR CHEST 1 VIEW Observed: 01/10/2025 7:23 PM Status: F Source: [facility] ORIGINAL EXAMINATION: ONE XRAY VIEW OF THE CHEST01/10/2025 7:24 pm COMPARISON: None HISTORY: ORDERING SYSTEM PROVIDED HISTORY: Reason for Exam: pain FINDINGS: The cardiomediastinal contours are normal.Incidental azygous fissure. There is no consolidation, vascular congestion, pleural effusion, or pneumothorax. There are no acute abnormalities to osseous structures. IMPRESSION: No acute radiographic findings. I have reviewed the resident's preliminary report and agree with findings and impression. Interpreted by: Gabe Zhao Preliminary Report By: Balwinder Leblanc Electronically signed By Gabe Zhao Dictated Date: 01/10/2025 7:42:09 PM Prelim Date: 01/10/2025 7:42:27 PM Sign Date: 01/10/2025 7:51:08 PM Ordering Provider: FALLON OMER CBC Collected: 7:17 PM Status: F Source: [facility] TYPE CODE TESTS RESULT OUT OF RANGE REFERENCE UNITS LAB WBC(LOINC) WBC 8.6 4.5-10.8 10 3/mcL LAB RBCCT(LOINC) RBC 4.85 4.50-6.00 10 6/mcL LAB HGB(LOINC) Hgb 14.8 13.0-17.5 G/dL LAB HCT(LOINC) Hct 43.0 40.0-52.0 % LAB MCV(LOINC) MCV 88.7 81.0-100.0 fL LAB MCH(LOINC) MCH 30.6 27.0-33.0 pg LAB MCHC(LOINC) MCHC 34.5 32.0-36.0 G/dL LAB RDW(LOINC) RDW 12.6 11.5-15.5 % LAB PLT(LOINC) Platelet 246 150-450 10 3/mcL LAB MPV(LOINC) MPV 8.4 6.4-10.5 fL Performed By: #### GFR, ANEU , ESR, ADIFF, DIMER, CBC, CMP, MDW, CRP, TROPHS #### [address] [address] .AUTO DIFF Collected: 01/10/2025 7:17 PM Status: F Source: [facility] TYPE CODE TESTS RESULT OUT OF RANGE REFERENCE UNITS LAB PILAR(LOINC) Neutrophil % 61.2 50.0-75.0 % LAB LYM(LOINC) Lymphocyte % 25.6 20.0-40.0 % LAB MON(LOINC) Monocyte % 10.0 2.0-13.0 % LAB EO(LOINC) Eosinophil % 2.8 0.0-6.0 % LAB BAS(LOINC) Basophil % 0.4 0.0-2.5 % LAB ABLYM(LOINC) Lymphocyte, Absolute 2.2 0.9-4.3 10 3/mcL LAB ZAFAR(LOINC) Monocyte, Absolute 0.9 0.1-1.4 10 3/mcL LAB AEOS(LOINC) Eosinophil, Absolute 0.2 0.0-0.7 10 3/mcL LAB ABAS(LOINC) Basophil, Absolute 0.0 0.0-0.3 10 3/mcL Performed By: #### GFR, ANEU , ESR, ADIFF, DIMER, CBC, CMP, MDW, CRP, TROPHS #### [address] [address] .NEUABS Collected: 7:17 PM Status: F Source: [facility] TYPE CODE TESTS RESULT OUT OF RANGE REFERENCE UNITS LAB ANEU(LOINC) Neutrophil, Absolute 5.2 2.3-8.1 10 3/mcL Performed By: #### GFR, ANEU , ESR, ADIFF, DIMER, CBC, CMP, MDW, CRP, TROPHS #### [address] [address] .MDW Collected: 01/10/2025 7:17 PM Status: F Source: [facility] TYPE CODE TESTS RESULT OUT OF RANGE REFERENCE UNITS LAB MDW(LOINC) Monocyte Distribution Width 18.86 0.00-20.00 Result Comment: For ED adult patients suspected of sepsis, MDW<=20.0 does not rule out sepsis or risk of sepsis Performed By: #### GFR, ANEU , ESR, ADIFF, DIMER, CBC, CMP, MDW, CRP, TROPHS #### [address] [address] ESR Collected: 01/10/2025 7:17 PM Status: F Source: [facility] TESTS RESULT OUT OF RANGE REFERENCE UNITS LAB ESR(LOINC) Erythrocyte Sed Rate 6 0-15 mm/hr Performed By: #### GFR, ANEU , ESR, ADIFF, DIMER, CBC, CMP, MDW, CRP, TROPHS #### [address] [address] TROPHS Collected: 01/10/2025 7:17 PM Status: F Source: [facility] TYPE [facility] TESTS RESULT OUT OF RANGE REFERENCE UNITS LAB HSTROP(LOINC) High Sensitivity Troponin I 4 0-76 ng/L Result Comment: High Sensiti ve Troponin I Reference Ranges: Female: 0-51 ng/L Male: 0-76 ng/L Testing performed on [employer] using a homogeneous sandwich chemiluminescent immunoassay based on [employer] technology. Performed By: #### GFR, ANEU , ESR, ADIFF, DIMER, CBC, CMP, MDW, CRP, TROPHS #### [address] [address] DIMER Collected: 7:17 PM Status: F Source: [facility] TYPE CODE TESTS RESULT OUT OF RANGE REFERENCE UNITS LAB DIMER(LOINC) D-Dimer <200 0-230 ng/mL D-DU Result Comment: DDN: Results reported in D-DU ng/mL. Negative for D-dimer. DVT/PE is highly unlikely. Note: False negative results may be seen in patients on anticoagulant therapy. The result of the D-Dimer test should be evaluated in the context of all the clinical and laboratory data available. In those instances where the laboratory result does not agree with the clinical evaluation, additional tests should be performed accordingly. If the D-Dimer result is used to exclude DVT or PE, the recommended cutoff value is less than 230 ng/mL. The D-Dimer result should not be used alone to rule in DVT/PE, but should be used in conjunction with a clinical pretest probability (PTP)assessment model to exclude venous thromboembolism (VTE) in patients suspected of deep venous thrombosis (DVT) and pulmonary embolism (PE). Performed By: #### GFR, ANEU , ESR, ADIFF, DIMER, CBC, CMP, MDW, CRP, TROPHS #### [address] [address] CRP Collected: 01/10/2025 7:17 PM Status: F Source: [facility] TYPE CODE TESTS RESULT OUT OF RANGE REFERENCE UNITS LAB CRP(LOINC) C-Reactive Protein 0.8 High 0.0-0.3 mg/dL Performed By: #### GFR, ANEU , ESR, ADIFF, DIMER, CBC, CMP, MDW, CRP, TROPHS #### [address] [address] CMP Collected: 01/10/2025 7:17 PM Status: F Source: [facility] TYPE CODE TESTS RESULT OUT OF RANGE REFERENCE UNITS LAB GLU(LOINC) Glucose Level 92 70-105 mg/dL LAB NA(LOINC) Sodium Level 141 136-145 mmol/L LAB K(LOINC) Potassium Level 3.5 3.5-5.1 mmol/L LAB CL(LOINC) Chloride 104 98-107 mmol/L LAB CO2(LOINC) CO2 29 22-29 mmol/L LAB EBAL(LOINC) Electrolyte Balance 8.0 4.0-15.0 mEq/L LAB BUN(LOINC) BUN 12 7-18 mg/dL LAB CRE(LOINC) Creatinine Lvl (s) 0.82 0.67-1.17 mg/dL LAB BC(LOINC) BUN/Creatinine Ratio 15 7-27 ratio LAB CA(LOINC) Calcium Lvl 8.9 8.4-10.2 mg/dL LAB PROT(LOINC) Total Protein 7.4 6.4-8.2 G/dL LAB ALB(LOINC) Albumin Level 3.6 3.5-5.0 G/dL LAB GLB(LOINC) Globulin 3.8 2.7-4.4 G/dL LAB AG(LOINC) A/G Ratio 0.9 Low 1.1-2.5 ratio LAB BILT(LOINC) Bili Total 0.6 0.2-1.0 mg/dL Result Comment: Use of this assay is not recommended for patients undergoing treatment with eltrombopag due to the potential for falsely elevated results. LAB AP(LOINC) Alk Phos 60 40-135 U/L LAB AST(LOINC) AST/SGOT 14 10-40 U/L LAB ALT(LOINC) ALT/SGPT 22 16-63 U/L Performed By: #### GFR, ANEU , ESR, ADIFF, DIMER, CBC, CMP, MDW, CRP, TROPHS #### [address] [address] .GFR Collected: 01/10/2025 7:17 PM Status: F Source: [facility] TYPE CODE TESTS RESULT OUT OF RANGE REFERENCE UNITS LAB eGFR(LOINC) Estimated Glomerular Filtration Rate 120 ml/min/1. 73sqm Result Comment: Stages of Chronic Kidney Disease (CKD) Stage Description eGFR(ml/min/1.73 sq.m.) CKD 1 Normal kidney function or >=90 normal kindney function with possible kidney damage (ex. Proteinuria) CKD 2 Kidney damage with mild loss 60-89 of kidney function CKD 3a Mild to moderate loss of kidney 45-59 function CKD 3b Moderate to severe loss of 30-44 of kindey function CKD 4 Severe loss of kidney function 15-29 CKD 5 Kidney failure <15 Note: (go live 2024) the eGFR calculation was updated to the 2020 CKD-EPI creatinine equation without a race factor to calculate the eGFR results. Performed By: #### GFR, ANEU , ESR, ADIFF, DIMER, CBC, CMP, MDW, CRP, TROPHS #### [address] [place], [place] [address] ALLERGIES No Allergies Records Found ENCOUNTERS ADMIT/DISCHARGE ACCOUNT NUMBER ADMITTING ENCOUNTER CLASS LOCATION SOURCE 01/10/2025/ 5 [id number] Emergency [facility]IN[facility] SUBSCRIBER SOURCE 01/10/2025 HAMLET RIZO: [id number] [place], [place] [address]Qdi: (HP) Primary Insurance:SELF PAY INSCOPolicy Number: Effective Date:[id number] Name:8 HAMLET RIZO: [id number] [place], [place] [address]Qjy: (HP) () [facility]
[2025-05-18 09:01] VITALS: BP 122/85; PULSE 77; RESP 16; TEMP 36.8; O2SAT 99; BMI 27.8
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
[2025-05-18] MEDS: 0.9% Normal Saline (1000mL) 1,000 ML 999 ML IV (09:35)
[2025-05-18 09:49] LABS: Hematocrit 42.2 % (40-54); Hemoglobin 14.8 g/dL (13.0-16.5); Immature Granulocytes Count 0.020 X10^3/uL (0.0-0.0); Mean Corp Hgb Conc 35.1 g/dL (32-36); Mean Corpuscular Volume 88.3 fL (80-94); Mean Platelet Vol. 10.3 fl (6.2-12.0); NRBC Flagged by Analyzer 0 % (0-5); Platelet Count 215 K/mm3 (150-450); RBC Distribution Width CV 12.1 % (11.6-14.6); RBC Distribution Width SD 39.5 fl (35.1-43.9); Red Blood Count 4.78 M/mm3 (4.6-6.2); White Blood Count 6.6 K/mm3 (4.4-11.0)
[2025-05-18 10:13] LABS: AST(SGOT) 18 U/L (<=37); Alanine Aminotransfer ALT/SGPT 29 U/L (<=46); Albumin, Serum 4.0 g/dL (3.5-5.0); Alkaline Phosphatase 39 U/L (40-129); Anion Gap 8 (5-15); BUN 9 mg/dL (4-19); BUN/Creat Ratio 11.0 RATIO (10-20); Calcium,Total 9.1 mg/dL (7.6-11.0); Carbon Dioxide 27.2 mmol/L (21.0-32.0); Chloride 104 mmol/L (98-108); Estimated Creatinine Clearance 130.69 ml/min (50-250); Globulin 2.9 g/dL (2.2-4.2); Glucose 103 mg/dL (70-99); Lipase 18 U/L (13-75); Potassium 4.3 mmol/L (3.3-5.1)
--- NOTE | 2025-05-18 10:20 | CT_ITS ---
PROCEDURE: ABDOMEN/PELVIS W IV CONT ONLY 05/18/2025 REASON FOR EXAM: ABDOMINAL PAIN TECHNIQUE: Procedure Code: [id number] Modality: CT Procedure: ABDOMEN/PELVIS W IV CONT ONLY Coronal and Sagittal reconstruction series were provided. CONTRAST: 98 cc Isovue-300 One or more dose reduction techniques were used (e.g., Automated exposure control, adjustment of the mA and/or kV according to patient size, use of iterative reconstruction technique. RADIATION DOSE SUMMARY: DLP: 899 mGycm COMPARISON: June 27, 2024 FINDINGS: Lung bases: Clear Liver: Unremarkable Gallbladder: Unremarkable Spleen: Unremarkable Pancreas: Unremarkable Adrenals: Unremarkable Kidneys: Unremarkable Bladder: Unremarkable Reproductive Organs: Unremarkable Bowel: Gas and stool is noted throughout the colon with a moderate stool load. Small bowel loops are not distended. Appendix: Within normal limits Lymph nodes: There is no pathologic adenopathy by size criteria. Vasculature: There is no visible atherosclerosis. Peritoneum / Retroperitoneum: There is no free air or free fluid. Bones: There is no acute bony abnormality. CT/Abdomen/Pelvis W IV Cont ONLY IMPRESSION: No acute abnormality is identified in the abdomen or pelvis. Reading Location: [facility]
--- NOTE | 2025-05-18 10:41 | CM.ED ---
Social work Reason for referral: no PCP/insurance Referral source: case find SW identified patient's lack of insurance and lack of PCP. SW entered patient's room, introducing self and role at [facility]. Patient confirmed lacking PCP, but stated waiting out the 90 day period at work before patient's insurance begins. Patient denied needing Medicaid information, but accepted [facility] Provider Directory and Margarita Dodsonsumner information. Patient denied further needs at this time. Polina Cardona, WOOL HANKER, HOT PATCHER
[2025-05-18 10:56] VITALS: BP 118/68; PULSE 66; RESP 15; O2SAT 99
[2025-05-18 11:02] LABS: Mucous, Urine 0 SEEN /hpf (<or=2+); Red Blood Cells-Urine 0 SEEN /hpf (0-5); Squamous Epithelial Cells - UA 0 SEEN /hpf (0-5)
[2025-05-18 11:11] LABS: Color, Urine Yellow (Yellow); Glucose, Dipstick Normal (Normal); Ketone-Dipstick Negative (Negative); Leukocyte Esterase-Dipstick 25 /ul (Negative); Nitrite-Dipstick Negative (Negative); Occult Blood-Urine Negative /ul (Negative); Protein-Dipstick 15 mg/dl (Negative); Specific Gravity, Urine 1.005 (1.002-1.030); Urine Bilirubin Dipstick Negative (Negative)
[2025-05-18 12:00] VITALS: BP 118/70; PULSE 61; RESP 15; O2SAT 100
[2025-05-18 12:02] VITALS: BP 118/70; PULSE 61; RESP 15; TEMP 36.6; O2SAT 100
== END 2025-05-18 12:02 | disposition home or self-care (01) ==
PROVIDERS: Emergency Provider Emergency Medicine; Visit Provider Emergency Medicine
DX: R10.11 Right upper quadrant pain (principal); R11.2 Nausea with vomiting, unspecified; R19.7 Diarrhea, unspecified; R10.13 Epigastric pain; F17.210 Nicotine dependence, cigarettes, uncomplicated; F17.290 Nicotine dependence, other tobacco product, uncomplicated
CPT/HCPCS: 74177; 80053; 81001; 83690; 85025; 96361; 96374; 96375; 99283; Q9967; J2405

== ENCOUNTER 2025-06-01 10:05 | Emergency (ER) | payer SELFPAY ==
[2025-06-01 10:06] VITALS: BP 124/78; PULSE 79; RESP 16; TEMP 36.6; O2SAT 99; BMI 26.7
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
[2025-06-01 12:11] LABS: Hematocrit 45.9 % (40-54); Hemoglobin 15.5 g/dL (13.0-16.5); Immature Granulocytes Count 0.020 X10^3/uL (0.0-0.0); Mean Corp Hgb Conc 33.8 g/dL (32-36); Mean Corpuscular Volume 88.6 fL (80-94); Mean Platelet Vol. 10.6 fl (6.2-12.0); NRBC Flagged by Analyzer 0 % (0-5); Platelet Count 233 K/mm3 (150-450); RBC Distribution Width CV 12.1 % (11.6-14.6); RBC Distribution Width SD 39.5 fl (35.1-43.9); Red Blood Count 5.18 M/mm3 (4.6-6.2); White Blood Count 7.1 K/mm3 (4.4-11.0)
[2025-06-01 12:56] LABS: AST(SGOT) 20 U/L (<=37); Alanine Aminotransfer ALT/SGPT 31 U/L (<=46); Albumin, Serum 4.2 g/dL (3.5-5.0); Alkaline Phosphatase 43 U/L (40-129); Anion Gap 9 (5-15); BUN 12 mg/dL (4-19); BUN/Creat Ratio 13.3 RATIO (10-20); Calcium,Total 9.0 mg/dL (7.6-11.0); Carbon Dioxide 27.4 mmol/L (21.0-32.0); Chloride 104 mmol/L (98-108); Estimated Creatinine Clearance 119.02 ml/min (50-250); Globulin 3.0 g/dL (2.2-4.2); Glucose 85 mg/dL (70-99); Lipase 18 U/L (13-75); Potassium 4.0 mmol/L (3.3-5.1)
--- NOTE | 2025-06-01 13:06 | ED.RN ---
When this Rn went into room to medicate, pt declined further testing or treatment. He stated he only came for a work note and wants to leave now as he feels much better. notified.
== END 2025-06-01 13:09 | disposition home or self-care (01) ==
PROVIDERS: Emergency Provider Student in an Organized Health Care Education/Training Program; Visit Provider Student in an Organized Health Care Education/Training Program
DX: R11.15 Cyclical vomiting syndrome unrelated to migraine (principal); R19.7 Diarrhea, unspecified; F17.210 Nicotine dependence, cigarettes, uncomplicated; F17.290 Nicotine dependence, other tobacco product, uncomplicated
CPT/HCPCS: 80053; 83690; 85025; 99282; J2405